=== PATIENT | female | born 1985 ===

== ENCOUNTER 2020-01-09 01:47 | Emergency (ER) | payer MEDICAID ==
[~2020-01-09] VITALS: Ht 152.4 cm; Wt 167.8 kg
[2020-01-09] MEDS ORDERED: IBUPROFEN600 MG PO (02:07)
[2020-01-09] MEDS ORDERED: PENICILLIN V P500 MG PO (02:08)
[2020-01-09] MEDS ORDERED: NORCO 5-325 TA1 EACH PO (02:08)
[2020-01-09] MEDS ORDERED: ACYCLOVIR400 MG PO (02:09)
== END 2020-01-09 03:22 | disposition home or self-care (01) ==
LOC: ED 01:47
DX: M79.671 Pain in right foot (principal); M79.672 Pain in left foot; I10 Essential (primary) hypertension; F17.200 Nicotine dependence, unspecified, uncomplicated; Z79.899 Other long term (current) drug therapy
CPT/HCPCS: 87529; 99283